=== PATIENT | male | born 1945 | race Caucasian/White ===

== ENCOUNTER 2018-08-23 10:11 | Outpatient (CLI) | payer MEDICARE ==
--- NOTE | 2018-08-23 13:16 | RAD ---
THREE VIEWS CERVICAL SPINE: HISTORY: Arthritis, neck pain. History of fall with pain for 1 year. FINDINGS: AP, lateral, and open-mouth odontoid views cervical spine obtained. Images demonstrate no evidence of acute cervical spine fracture, subluxations, or bony lesions. Ther e are some mild posterior osteophytes at C3-4 and C4-5. No significant evidence of acute or chronic cervical spine abnormality is seen. IMPRESSION: Unremarkable 3 views cervical spine. POS: TIAGO
== END 2018-08-23 10:12 | disposition home or self-care (01) ==
LOC: BICRAD 10:11
PROVIDERS: ATTEND Family Medicine
DX: M19.90 Unspecified osteoarthritis, unspecified site (principal)
CPT/HCPCS: 72040

== ENCOUNTER 2019-01-30 11:42 | Emergency (ER) | payer MEDICARE ==
--- NOTE | 2019-01-30 12:13 | RAD ---
FRight foot 3 views HISTORY: right foot injury COMPARISON: None FINDINGS: The toes are held in flexion slightly limiting the exam. There is diffuse osteopenia. No de finite acute fracture or subluxation is evident. Soft tissues appear within normal limits. IMPRESSION: No acute osseous abnormality.
--- NOTE | 2019-01-30 12:16 | RAD ---
LEFT FOOT 3 VIEWS: Date: 01/30/19 HISTORY: Foot injury 1 week ago. FINDINGS: Old first metatarsal fracture is seen. There is also deformity to the fifth metatarsal head, which ap pears to be related to old injury. No acute fractures are seen. Calcaneal spur at the plantar fascia insertion is noted. IMPRESSION: No acute findings. POS: ABBIE
== END 2019-01-30 13:09 | disposition home or self-care (01) ==
LOC: ERS 11:42
DX: M79.672 Pain in left foot (principal); M79.671 Pain in right foot; E78.00 Pure hypercholesterolemia, unspecified; I10 Essential (primary) hypertension; W01.0XXA Fall on same level from slipping, tripping and stumbling without subsequent striking against object, initial encounter

== ENCOUNTER 2019-05-28 18:43 | Inpatient (IN) | payer MEDICARE ==
[~2019-05-28 18:43] MED LIST: Dexamethasone 20 MG/5 ML VIAL ONE; Glycopyrrolate 0.2 MG/ML 5 ML SYRINGE ONE; ISOVUE-370 76%-LOCM 1 ML ONE; Lidocaine 1% PF 5 ML VIAL ONE; Ondansetron PF 4 MG/2 ML Vial ONE; PHENYLEPHRINE-NS 100 MCG/ML 10 ML SYRINGE ONE; PROPOFOL 200 MG/20 ML VIAL ONE; Rocuronium Bromide 10 MG/ML (10ML VIAL) ONE; Succinylcholine Chloride 20 MG/ML 10 ml SYRINGE FS ONE; ePHEDrine 50 MG/ML VIAL ONE
[2019-05-28] MEDS ORDERED: Morphine 4 MG/ML VIAL ONE (19:07)
[2019-05-28] MEDS ORDERED: Ondansetron PF 4 MG/2 ML Vial ONE (19:07)
[2019-05-28 19:21] LABS: Mean Corpuscular HGB CONC 33.7 g/dL (32.0-36.0); Mean Corpuscular Hemoglobin 30.9 pg (27.0-31.0); Mean Corpuscular Volume 91.5 fL (78.0-98.0); Mean Platelet Volume 8.6 fL (7.4-10.4); Platelet Count 210 thou/uL (130-400); Red Blood Cell (RBC) Count 5.18 mill/uL (4.70-6.10); White Blood Cell (WBC) Count 15.2 thou/uL (4.8-10.8)
[2019-05-28 19:41] LABS: ALT (SGPT) 12 U/L (8-55); AST (SGOT) 16 U/L (5-34); Albumin 4.4 g/dL (3.4-4.8); Alkaline Phosphatase 98 U/L (40-150); Anion Gap 19 mmol/L (10-20); BUN (Urea Nitrogen) 21 mg/dL (8.4-25.7); Band 36 % (5-11); Calc. Creatinine Clearance 0 mL/min (70-130); Calcium 9.5 mg/dL (7.8-10.44); Carbon Dioxide 23 mmol/L (23-31); Chloride 102 mmol/L (98-107); Estimated GFR-MDRD 42; Glucose 89 mg/dL (83-110); Lipase 20 U/L (8-78); Lymphocytes 7 % (21-51); MDiff Complete? YES; Metamyelocyte 4 % (0-0); Monocytes 3 % (0-10); Neutrophil 50 % (42-75); Platelet Morphology Comment Appears Adequate; Protein, Total 7.4 g/dL (5.8-8.1); RBC Morphology Normal; Sodium 140 mmol/L (136-145)
--- NOTE | 2019-05-28 20:12 | CT ---
CT abdomen and pelvis with IV contrast HISTORY: Abdominal pain. Fever. COMPARISON: Multiple exams back to 08/07/2016. FINDINGS: Mild atelectasis at the lung bases. Moderate hiatal hernia. Cyst at the superior pole of th e right kidney has enlarged. Diverticula arise from the colon. Within the anterior upper mid abdomen, multiple small bowel loops are inflamed. There is an irregular shaped collection of small gas pockets outside of the bowel lumen. Estimated at 4.9 cm x 3.2 cm greatest diameters. Scattered diverticula of the adjacent small bowel and colon are apparent. Strandi ng in the adjacent fat. Irregular shaped calcification at the right posterior margin of the abnormality may represent inspissated material in a diverticulum. Degenerative changes lumbar spine. IMPRESSION: Contained bowel perforation within the anterior upper mid abdomen, favored to be from the small bowel. Possibly ruptured small bowel diverticulitis. Adjacent inflammation of the fat and bowel. Atherosclerosis. Findings were called to Dr. Huizar in the emergency department at 2004 hours. Code CR.
[2019-05-28] MEDS ORDERED: Meropenem 2 GM, Admixture Fee 1 EACH in Sodium Chloride 0.9% 100 ML IVPB SCH (20:45)
[2019-05-28] MEDS ORDERED: Fentanyl 100 MCG/2 ML VIAL ONE ×2 (21:34→21:35)
[2019-05-28 21:36] LABS: INR-International Normal Ratio 1.2; PTT 30.8 SEC (22.9-36.1); Prothrombin Time 15.6 SEC (12.0-14.7)
[2019-05-29] MEDS ORDERED: SUGAMMADEX SODIUM 200 MG/2 ML VIAL ONE (01:00)
[2019-05-29] MEDS ORDERED: HYDROmorphone 0.5 MG/0.5 ML SYRINGE SLOW IVP SCH (01:15)
[2019-05-29] MEDS ORDERED: Dextrose 5% in Water 1,000 ML IV PRN (01:18)
[2019-05-29] MEDS ORDERED: Albumin 5% 0 ML ONE (01:18)
[2019-05-29] MEDS ORDERED: Naloxone HCl 0.4 mg/ml Vial IV PRN ×2 (01:18→01:24)
[2019-05-29] MEDS ORDERED: Dextrose 50% Abboject 50 ML SYRINGE SLOW IVP PRN (01:18)
[2019-05-29] MEDS ORDERED: diphenhydrAMINE 25 MG CAP PO PRN (01:18)
[2019-05-29] MEDS ORDERED: diphenhydrAMINE 50 MG/ML VIAL IM PRN (01:18)
[2019-05-29] MEDS ORDERED: diphenhydrAMINE 50 MG/ML VIAL IVP PRN (01:18)
[2019-05-29] MEDS ORDERED: Ondansetron PF 4 MG/2 ML Vial IVP PRN (01:18)
[2019-05-29 01:21] VITALS: BMI 28.0
[2019-05-29] MEDS ORDERED: HYDROmorphone 10 mg/100 ml CADD IVPB PRN ×2 (01:24→09:18)
[2019-05-29] MEDS ORDERED: Communication Order-Pharmacy FS SCH ×2 (01:30)
[2019-05-29] MEDS: Sodium Chloride 0.9% 1,000 ML IV SCH ×3 (01:46→22:14)
[2019-05-29] MEDS: Piperacillin/Tazobactam 3.375 GM in Sodium Chloride 0.9% 100 ML IVPB SCH ×3 (05:27→18:07)
[2019-05-29] MEDS: Acetaminophen 1,000 MG in Premix Bag 1 BAG IVPB SCH ×4 (05:27→23:27)
[2019-05-29 07:24] LABS: Hemoglobin 13.4 g/dL (14.0-18.0); Mean Corpuscular HGB CONC 33.1 g/dL (32.0-36.0); Mean Corpuscular Hemoglobin 30.5 pg (27.0-31.0); Mean Corpuscular Volume 92.2 fL (78.0-98.0); Mean Platelet Volume 8.1 fL (7.4-10.4); Platelet Count 154 thou/uL (130-400); Red Blood Cell (RBC) Count 4.39 mill/uL (4.70-6.10); White Blood Cell (WBC) Count 13.6 thou/uL (4.8-10.8)
[2019-05-29] MEDS: Ondansetron PF 4 MG/2 ML Vial IVP PRN ×2 (07:30→12:37)
[2019-05-29 07:37] LABS: Anion Gap 13 mmol/L (10-20); BUN (Urea Nitrogen) 17 mg/dL (8.4-25.7); Calc. Creatinine Clearance 70 mL/min (70-130); Calcium 7.9 mg/dL (7.8-10.44); Carbon Dioxide 22 mmol/L (23-31); Chloride 107 mmol/L (98-107); Estimated GFR-MDRD 62; Glucose 150 mg/dL (83-110); Magnesium 1.3 mg/dL (1.6-2.6); Phosphorus 2.9 mg/dL (2.3-4.7); Potassium 3.4 mmol/L (3.5-5.1); Sodium 139 mmol/L (136-145)
[2019-05-29] MEDS: Pantoprazole 40 MG VIAL IVP SCH ×2 (08:09→20:40)
[2019-05-29] MEDS: Enoxaparin Sodium 40 MG/0.4 ML SYRINGE SC SCH (08:09)
[2019-05-29] MEDS ORDERED: Magnesium 2 GM/50 ML 2 GM in Premix Bag 1 BAG IVPB SCH (09:00)
[2019-05-29 12:16] LABS: Band 4 % (5-11); MDiff Complete? YES; Monocytes 2 % (0-10); Neutrophil 89 % (42-75); Platelet Morphology Comment Appears Adequate; Reactive Lymphocytes 5 % (0-10)
[2019-05-29] MEDS: Promethazine HCl 25 MG/ML VIAL IM PRN ×2 (15:19→15:31)
--- NOTE | 2019-05-29 17:42 | PRG ---
DATE OF SERVICE: 05/29/2019 SUBJECTIVE: Me. Quinonez is a 73-year-old man, postoperative day #1, status post exploratory laparotomy, segmental small bowel resection with primary anastomosis for perforated small bowel diverticulitis. The patient is awake and alert today. He reports adequate pain control. His urinary output is adequate. He denies any dyspnea. He is on no vasopressor or inotropic support. OBJECTIVE: VITAL SIGNS: Includes blood pressure 102/62, pulse 79, respiratory rate is 15, temperature is 98 degrees Fahrenheit, and oxygen saturation is 95% on 3 L by nasal cannula oxygen. HEENT: Pupils are equal, round, and reactive to light and accommodation. He has no jugular venous distention noted. HEART: Reveals irregular rate and rhythm. LUNGS: Clear to auscultation bilaterally. Breathing, regular and unlabored. ABDOMEN: Soft with markedly improvement with regard to abdominal pain. Incisions are intact, clean, and dry. He clearly has no peritoneal signs on examination. NEUROLOGIC: Reveals no focal deficits present. LABORATORY FINDINGS: Today includes a CBC with 13,600 white blood cells, hemoglobin and hematocrit are 13.4 and 40.4 respectively. The platelet count is 154,000. Differential counts as follows 89% segmented neutrophils, 4 bands, 5 reactive lymphocytes, and 2 monocytes. This is in contrast to CBC yesterday with 15,200 white blood cells, albeit with 50 segmented neutrophils, 36 bands, 7 lymphocytes, and 3 monocytes. Laboratory findings today, sodium is 139, potassium is 3.4, chloride is 107, bicarb is 22, BUN is 17, and creatinine is 1.15, down from 1.61 yesterday. Glucose is 150, magnesium 1.3, and phosphorus is 2.9. IMPRESSION: 1. Postop day #1, status post exploratory laparotomy, segmental small bowel resection with primary anastomosis. 2. Resolving acute peritonitis. 3. Acute hypokalemia. 4. Acute hypomagnesemia. 5. Acute hypophosphatemia. PLAN: 1. Correct abnormal electrolytes. 2. Increase activity per Physical and Occupational Therapy. Cochran catheter will be discontinued. The patient is certainly hemodynamically stable for transfer to general surgical floor. Job ID: [id number]
[2019-05-29] MEDS: Tamsulosin HCl 0.4 MG CAP PO SCH (21:14)
[2019-05-30] MEDS: Piperacillin/Tazobactam 3.375 GM in Sodium Chloride 0.9% 100 ML IVPB SCH ×5 (00:07→23:09)
--- NOTE | 2019-05-30 03:34 | PRG ---
DATE OF SERVICE: 05/30/2019 SUBJECTIVE: The patient is currently on the surgical floor. He is postop day #1, status post exploratory laparotomy, segmental small bowel resection with primary anastomosis for perforated small bowel diverticulitis. The patient had his pain controlled with Dilaudid [employer]. The patient remaining n.p.o. at this time. There have no issues been reported by the nurses. OBJECTIVE: VITAL SIGNS: Stable. The patient is afebrile. GENERAL: The patient appears to be resting comfortably. ASSESSMENT AND PLAN: 1. Status post exploratory laparotomy, segmental small bowel resection with primary anastomosis. 2. Await bowel function return to begin oral intake. Repeat labs in the morning. Begin physical and occupational therapy and discussed placement. Job ID: [id number]
[2019-05-30] MEDS: Sodium Chloride 0.9% 1,000 ML IV SCH ×2 (05:28→17:12)
[2019-05-30 06:00] LABS: Band 1 % (5-11); Hemoglobin 12.7 g/dL (14.0-18.0); Hypochromia SLIGHT = 6-15 cells (100X) (0-5/hpf); Lymphocytes 5 % (21-51); MDiff Complete? YES; Mean Corpuscular HGB CONC 33.4 g/dL (32.0-36.0); Mean Corpuscular Hemoglobin 30.8 pg (27.0-31.0); Mean Corpuscular Volume 92.1 fL (78.0-98.0); Mean Platelet Volume 8.3 fL (7.4-10.4); Monocytes 4 % (0-10); Neutrophil 90 % (42-75); Platelet Count 152 thou/uL (130-400); Platelet Morphology Comment Appears Adequate; RBC Distribution Width 13.9 % (11.5-14.5); Red Blood Cell (RBC) Count 4.12 mill/uL (4.70-6.10); White Blood Cell (WBC) Count 10.5 thou/uL (4.8-10.8)
[2019-05-30 06:02] LABS: Anion Gap 10 mmol/L (10-20); BUN (Urea Nitrogen) 14 mg/dL (8.4-25.7); Calc. Creatinine Clearance 81 mL/min (70-130); Calcium 8.7 mg/dL (7.8-10.44); Carbon Dioxide 24 mmol/L (23-31); Chloride 110 mmol/L (98-107); Estimated GFR-MDRD 72; Glucose 107 mg/dL (83-110); Phosphorus 2.3 mg/dL (2.3-4.7); Potassium 3.4 mmol/L (3.5-5.1); Sodium 141 mmol/L (136-145)
--- NOTE | 2019-05-30 07:52 | HP ---
HISTORY: Mr. Quinonez is a 73-year-old man, who presented to emergency department with acute onset of generalized abdominal pain, which started approximately at 0800 hours. The pain was described as sharp and 4/10 in onset associated with multiple episodes of nausea, but no emesis. He denies any change in his bowel habits. He denies any unexplained weight loss. Pain has intensified to 10/10, for which he presented to the emergency department today. Ride to the hospital was rough in that each bump exacerbated his abdominal pain. PAST MEDICAL HISTORY: Pertinent for essential hypertension, hyperlipidemia, and diverticulosis coli. PAST SURGICAL HISTORY: Pertinent for pacemaker insertion, multiple endoscopies, repair of fractures to the right finger and foot. He has had excision of skin lesion on his nose. FAMILY HISTORY: Noncontributory for this patient's age. SOCIAL HISTORY: The patient is . Lives at home with his . He is retired from a [employer], a job he held for 37 years. He admits to occasional intake of ethanol in moderate amount. He denies any cigarette smoking or illicit drug abuse. MEDICATIONS: 1. Gemfibrozil 600 mg p.o. b.i.d. 2. Omeprazole 40 mg p.o. daily. 3. Bisoprolol/hydrochlorothiazide combination 10 mg/6.25 mg 1 p.o. daily. 4. Etodolac 500 mg p.o. b.i.d. 5. Aspirin 81 mg p.o. daily. ALLERGIES: HYDROCODONE, WHICH GIVES HIM NAUSEA, BUT NEVER ANAPHYLACTIC REACTION. REVIEW OF SYSTEMS: Ten-point review of systems is essentially unremarkable except as stated in past medical history and chief complaint. PHYSICAL EXAMINATION: GENERAL: This reveals a 73-year-old obese man, who is otherwise coherent, interactive, and appears stated age. The patient is alert and oriented x3. Appears to be in moderate acute distress secondary to severe abdominal pain. VITAL SIGNS: Reveal blood pressure 109/84, pulse 92, respiratory rate is 21, temperature 97.9 degrees Fahrenheit, oxygen saturation is 95% on 2 L by nasal cannula oxygen. HEENT: Reveals normocephalic and atraumatic. Pupils are equal, round, reactive to light and accommodation. He has no jugular venous distention noted. HEART: Reveals rate and rhythm. LUNGS: Clear to auscultation bilaterally. Breathing, regular and nonlabored. ABDOMEN: Soft and distended. He has generalized severe tenderness to palpation. He has a positive rebound tenderness present. Liver and spleen otherwise nonpalpable below costal margin. EXTREMITIES: Reveal 2+ radial and pedal pulses bilaterally. No ankle edema is present. NEUROLOGIC: Reveals no focal deficits present. LABORATORY FINDINGS: Today includes a CBC with 15,200 white blood cells, hemoglobin and hematocrit 16.0 and 47.4 respectively. Platelet count is 210,000. Of significance, his differential count of 50% segmented neutrophils, 36 bands, 7 lymphocytes, 3 monocytes, and 4 metamyelocytes. Metabolic profile; sodium 140, potassium 4.0, chloride is 102, bicarb is 23, BUN 21, creatinine is 1.61, glucose is 89. Lactic acid is elevated at 2.8. Total bilirubin is 1.0. AST and ALT normal at 16 and 12 respectively. Serum lipase is normal at 20. PTT and INR normal at 30.8 seconds and 1.2 respectively. I personally reviewed the CT scan of the abdomen and pelvis, which is remarkable for irregularly shaped collection of contained gas pocket site of small bowel lumen with neighboring small bowel with thickened wall and mesenteric fat stranding. Also noted diverticulosis coli without any evidence of colonic diverticulitis. IMPRESSION: 1. Acute perforated viscus, likely secondary to perforated small bowel diverticula. 2. Acute peritonitis secondary to #1. 3. Acute lactic acidosis. 4. Stage 3 chronic kidney disease. PLAN: Fluid resuscitation with appropriate broad-spectrum antibiotic therapy. The patient will be taken to the operating room for exploratory laparotomy and possible bowel resection and primary anastomosis. Above findings and recommendation have been discussed with the patient and his elderly at bedside. I have advised him of the risks and benefits of proposed surgery to include, but not limited to bleeding, infection, anastomotic leak, if small bowel resection was undertaken. Additionally, the patient is at risk for perioperative myocardial infarction or respiratory failure, requiring mechanical ventilator support. The patient and his have both indicated understanding of information I provided to them today in the presence of his nurse. I have answered all their questions. The patient is going to consent for this admission and surgical intervention. Job ID: [id number]
[2019-05-30] MEDS: Enoxaparin Sodium 40 MG/0.4 ML SYRINGE SC SCH (08:47)
[2019-05-30] MEDS: Pantoprazole 40 MG VIAL IVP SCH ×2 (08:47→19:33)
[2019-05-30] MEDS ORDERED: traMADol HCl 50 MG TAB PO PRN (10:04)
[2019-05-30] MEDS: traMADol HCl 50 MG TAB PO SCH ×3 (12:07→23:11)
[2019-05-30] MEDS: Acetaminophen 500 MG TAB PO SCH ×3 (12:07→23:11)
--- NOTE | 2019-05-30 12:29 | OP ---
DATE OF PROCEDURE: 05/28/2019 PREOPERATIVE DIAGNOSES: 1. Acute perforated viscus. 2. Acute peritonitis secondary to acute perforated viscus. 3. Acute lactic acidosis secondary to acute perforated viscus and acute peritonitis. POSTOPERATIVE DIAGNOSIS: Acute perforated jejunal diverticula with acute peritonitis. PROCEDURES PERFORMED: 1. Exploratory laparotomy. 2. Segmental small bowel resection with primary anastomosis. 3. Abdominal washout. ANESTHESIA: General endotracheal. ESTIMATED BLOOD LOSS: 50 mL. FLUIDS GIVEN: 1500 mL crystalloids. COUNTS: Sponge and instrument counts were verified as correct x2. COMPLICATIONS: None apparent at the time of operation. INDICATIONS FOR PROCEDURE: A 73-year-old man presented with sudden onset of severe abdominal pain. Clinical and radiographic examination was consistent with acute perforated viscus with peritonitis, lactic acidosis, and leukocytosis with marked left shift. The patient was brought to the operating room for abdominal exploration. The findings are consistent with multiple jejunal diverticula with perforation and succus entericus within the abdominal cavity. DESCRIPTION OF PROCEDURE: Informed consent was obtained from the patient who was brought to the operating room and placed in supine position. Following general anesthesia, a Cochran catheter was inserted and placed to bedside drain. Nasogastric tube was inserted and placed to wall suction. Abdomen was sterilely prepped and draped in usual fashion. Midline incision was made using 10 scalpel. Incision was carried through subcutaneous tissues maintaining hemostasis using cautery. The fascia incised in midline using cautery. The peritoneum was exposed, grasped x2 with hemostats. Peritoneal cavity was sharply entered using Metzenbaum scissors. The incision was then extended superiorly and inferiorly. A Bookwalter retractor was put in place to gain exposure. A moderate amount of succus entericus was evacuated from the peritoneal cavity. Small bowel was run from the ligament of Treitz down to terminal ileum. I encountered multiple large jejunal diverticula. There were local perforation and some of the diverticula with succus entericus secretion and moderate amount of fibrinous exudates were also evacuated. Large intestine was inspected from the cecum through the ascending, transverse, descending, sigmoid colon and rectum. Aside from sigmoid colonic diverticula with no evidence of perforation or diverticulitis, no other pathology is identified. The previous nasogastric tube was palpated within the gastric lumen. Liver is palpated free of any abnormality. Normal appendix and gallbladder noted in the usual anatomic location. Spleen is palpated in the left upper quadrant. No abnormalities present. At this juncture, we decided to proceed with segmental small bowel resection. I created a rent just proximal to the beginning of the jejunal diverticula. A rent was created in the small bowel mesentery here through which a ROCIO stapler was introduced. Bowel was divided. I then created another rent just distal to the last jejunal diverticula. Again introduced a ROCIO stapler through this rent, dividing the bowel. Mesentery of the jejunal specimen was sterilely divided using LigaSure device with good hemostasis. The specimen was passed off the operative field for formal transmission to pathology. The abdominal cavity was copiously irrigated with saline solution until it was clear. To reapproximate the small bowel, the staple ends of the bowel were approximated in a [id number] fashion, antimesenteric border using interrupted sutures of 3-0 silk. Enterotomies were made at both apices, through which free ends of ROCIO stapler was introduced and functional end-to-end but anatomic [id number] enteroenterostomy was perfected. Common enterotomies were closed using re-loaded ROCIO stapler. Resultant mesenteric defect is closed using a running stitch of 2-0 Vicryl. The abdominal cavity was again irrigated. Good hemostasis was noted in place. All sponges and instruments were reported as correct x2. Small bowel returned to normal anatomic location. Omentum was drawn over remainder of the viscera. Fascia was approximated in the midline using a running stitch of #1 single-stranded PDS. Subcutaneous tissues were irrigated clear with saline solution, perfected hemostasis using cautery. Deep tissues approximated using interrupted sutures of 2-0 Vicryl. Skin incision itself was closed using a running stitch of 3-0 Monocryl suture in subcuticular fashion. Dermabond was applied over incisional closure. The patient tolerated the operation without any apparent complication and was returned to the intensive care unit in stable condition. Job ID: [id number]
--- NOTE | 2019-05-30 15:29 | PRG ---
DATE OF SERVICE: 05/30/2019 SUBJECTIVE: This is a 73-year-old gentleman postop day 2, status post exploratory laparotomy, segmental small bowel resection with primary anastomosis for perforated small bowel diverticulitis. The patient is doing better. Pain is well controlled. Urinary output is adequate. He denied any fever or shortness of breath. He is on no vasopressor support. OBJECTIVE: GENERAL: The patient is alert, awake, and oriented x3. VITAL SIGNS: Temperature 98.6, heart rate 78, respiratory rate 16, and O2 saturation 94% on 1 L of nasal cannula. LUNGS: Clear bilaterally. Breathing nonlabored. HEART: Regular rate and rhythm. ABDOMEN: Soft, nontender to touch. Incision, intact, clean, and dry. No rebound. NEUROLOGIC: No focal deficits. IMPRESSION: Postop day 2 status post exploratory laparotomy, segmental small bowel resection with primary anastomosis, and acute peritonitis, resolving. PLAN: NG tube was discontinued today. The patient will be participating with PT/OT on aggressive activity. Continue gastrointestinal and DVT prophylaxis. The patient is on clear liquid diet, waiting for bowel function to return. Job ID: [id number] [facility]
--- NOTE | 2019-05-30 15:41 | PQF ---
CLINICAL DOCUMENTATION IMPROVEMENT CLARIFICATION FORM: ICD-10 Updated PLEASE DO AN ADDENDUM TO THE PROGRESS NOTE WITH ANY DOCUMENTATION UPDATES OR ADDITIONS AND CARRY THROUGH TO DC SUMMARY. THANK YOU. DATE: 05/30/19 ATTN: DR. CRUZ Please exercise your independent, professional judgment in responding to the clarification form. Clinical indicators are provided on the bottom of this form for your review Please check appropriate box(es): [ ] Sepsis due to: (Pna, UTI, gangrenous gall bladder, etc.) Due to: [ ] Device (please specify) [ ] Implant [ ] Graft [ ] Infusion [ ] SIRS due to non-infectious process (please specify etiology) [ ] with organ dysfunction [ ] without organ dysfunction [ ] Severe sepsis with acute organ dysfunction of: (Examples: respiratory failure, encephalopathy, acute kidney failure, other) [ ] Septic Shock [ ] Localized infection without sepsis [ ] Other diagnosis [ ] Unable to determine In addition, please specify: Present on Admission (POA): [ ] Yes [ ] No [ ] Unable to determine For continuity of documentation, please document condition throughout progress notes and discharge summary. Thank You. CLINICAL INDICATORS - SIGNS / SYMPTOMS / LABS WBC 15.2 BANDS 36 LACTIC ACID 2.8 BP 90/59 RISKS: PERFORATED VISCUS PERITONITIS TREATMENT: IV FLUIDS (ER-PRESENT) IV MEROPENEM (ER) IV CIPRO (ER) IV ZOSYN (05/29-PRESENT) EXPLORATORY LAP SERIAL [employer]S [employer] Coordinator [employer] Program [employer] Winform Viewer(This form is maintained as a part of the permanent medical record) 2014 [employer]. All Rights Reserved [email or web address] Office: [phone] [facility]ITALNicole
[2019-05-30] MEDS ORDERED: DC PCA Order Set 1 EACH FS ONE (17:00)
[2019-05-30] MEDS ORDERED: Potassium Phosphate 15 MMOL in Sodium Chloride 0.9% 250 ML 250 ML IVPB SCH (17:15)
[2019-05-30] MEDS: Tamsulosin HCl 0.4 MG CAP PO SCH (19:32)
--- NOTE | 2019-05-31 01:03 | PRG ---
DATE OF SERVICE: 05/31/2019 SUBJECTIVE: The patient is postop day #2, status post exploratory laparotomy, segmental small bowel resection with primary anastomosis for perforated small bowel diverticulitis. The patient is doing well. He is tolerating his clear liquid diet. His pain is controlled and he has adequate urinary output. OBJECTIVE: VITAL SIGNS: Stable. The patient is afebrile. GENERAL: The patient appears comfortable, in no distress. ABDOMEN: There is minimal tenderness to palpation of his abdomen and he does have active bowel sounds. ASSESSMENT: Status post exploratory laparotomy with segmental small bowel resection and primary anastomosis for perforated small bowel diverticulitis. PLAN: Plan will be to continue encourage ambulation. We will continue his pain medication and advance his diet as tolerated. Placement will also be discussed tomorrow by the Day Team. Job ID: [id number]
[2019-05-31 05:26] LABS: Anion Gap 11 mmol/L (10-20); BUN (Urea Nitrogen) 10 mg/dL (8.4-25.7); Calc. Creatinine Clearance 83 mL/min (70-130); Calcium 8.6 mg/dL (7.8-10.44); Carbon Dioxide 26 mmol/L (23-31); Chloride 108 mmol/L (98-107); Estimated GFR-MDRD 73; Glucose 94 mg/dL (83-110); Magnesium 1.8 mg/dL (1.6-2.6); Phosphorus 2.4 mg/dL (2.3-4.7); Potassium 3.7 mmol/L (3.5-5.1); Sodium 141 mmol/L (136-145)
[2019-05-31] MEDS: Piperacillin/Tazobactam 3.375 GM in Sodium Chloride 0.9% 100 ML IVPB SCH ×2 (05:27→11:44)
[2019-05-31] MEDS: Acetaminophen 500 MG TAB PO SCH ×3 (05:27→18:26)
[2019-05-31] MEDS: traMADol HCl 50 MG TAB PO SCH ×3 (05:28→18:25)
[2019-05-31] MEDS: Sodium Chloride 0.9% 1,000 ML IV SCH ×2 (05:28→13:19)
[2019-05-31] MEDS: Enoxaparin Sodium 40 MG/0.4 ML SYRINGE SC SCH (08:41)
[2019-05-31] MEDS: Pantoprazole 40 MG VIAL IVP SCH (08:41)
--- NOTE | 2019-05-31 12:18 | PRG ---
DATE OF SERVICE: 05/31/2019 SUBJECTIVE: This is a 73-year-old gentleman, postop day #3, status post exploratory laparotomy, segmental small-bowel resection with primary anastomosis for perforated small bowel diverticulitis. The patient is doing well. The nurse states that he is able to get up on his own at this time. He is on a clear liquid diet. OBJECTIVE: VITAL SIGNS: Temperature 98.1, pulse 100, respirations 16, O2 saturation 92% on room air, and blood pressure 133/73. GENERAL: The patient is awake, alert, oriented x3. LUNGS: Clear to auscultation bilaterally. Labored breathing. HEART: Regular rate and rhythm. ABDOMEN: Soft and nontender to touch. No rebound. NEUROLOGIC: No focal deficits. IMPRESSION: Postop day #3, status post exploratory laparotomy, segmental small-bowel resection with primary anastomoses, and acute peritonitis secondary to perforated small bowel diverticulitis, resolving. PLAN: Doing well without NG tube at this time. Continue to participate with PT , OT as he is making good strides. He is able to get up by himself at this point. Currently on a clear liquid diet, consider advancing at this time. Findings and plan to have been discussed with the patient and Dr. Duran at bedside. He understands the plan. Job ID: [id number] [facility]
[2019-05-31] MEDS ORDERED: Etodolac 200 MG CAP PO PRN (16:08)
[2019-05-31] MEDS ORDERED: Digoxin 0.5 MG/2 ML AMP ONE (16:08)
[2019-05-31] MEDS: Gemfibrozil 600 MG TAB PO SCH (16:30)
[2019-05-31] MEDS ORDERED: Bisoprolol Fumarate/HCTZ 10 mg/6.25 mg Tablet PO SCH (16:30)
[2019-05-31] MEDS ORDERED: Digoxin 0.5 MG/2 ML AMP SLOW IVP SCH ×2 (17:00→17:21)
[2019-05-31 18:21] LABS: #Eosinphils 0.1 thou/uL (0.0-0.7); #Lymphocytes 0.9 thou/uL (1.20-3.40); #Monocytes 0.4 thou/uL (0.11-0.59); #Neutrophils 5.6 thou/uL (1.40-6.50); %Basophils 0.2 % (0.0-1.0); %Eosinophils 1.4 % (0.0-10.0); %Lymphocytes 12.5 % (21.0-51.0); %Monocytes 5.8 % (0.0-10.0); %Neutrophils 80.1 % (42.0-75.0); Hemoglobin 11.9 g/dL (14.0-18.0); Mean Corpuscular HGB CONC 33.4 g/dL (32.0-36.0); Mean Corpuscular Hemoglobin 30.5 pg (27.0-31.0); Mean Corpuscular Volume 91.3 fL (78.0-98.0); Mean Platelet Volume 7.8 fL (7.4-10.4); Platelet Count 148 thou/uL (130-400); RBC Distribution Width 13.5 % (11.5-14.5); Red Blood Cell (RBC) Count 3.89 mill/uL (4.70-6.10)
[2019-05-31 18:51] LABS: Anion Gap 12 mmol/L (10-20); BUN (Urea Nitrogen) 8 mg/dL (8.4-25.7); Calc. Creatinine Clearance 96 mL/min (70-130); Calcium 8.7 mg/dL (7.8-10.44); Carbon Dioxide 24 mmol/L (23-31); Chloride 107 mmol/L (98-107); Estimated GFR-MDRD 87; Glucose 102 mg/dL (83-110); Magnesium 1.7 mg/dL (1.6-2.6); Phosphorus 2.1 mg/dL (2.3-4.7); Sodium 140 mmol/L (136-145)
[2019-05-31] MEDS ORDERED: Potassium Phosphate 30 MMOL in Sodium Chloride 0.9% 250 ML 250 ML IVPB SCH (19:30)
[2019-05-31] MEDS: Amoxicillin/Potassium Clav 875 MG TAB PO SCH (21:01)
[2019-05-31] MEDS: Tamsulosin HCl 0.4 MG CAP PO SCH (21:01)
--- NOTE | 2019-05-31 23:30 | PRG ---
DATE OF SERVICE: 05/31/2019 SUBJECTIVE: Status post exploratory laparotomy and segmental small bowel resection with primary anastomosis for perforated small bowel diverticulitis. The patient continues to tolerate a full liquid diet. The patient currently remains atrial paced on the telemonitor with no runs of SVT. The patient denies any abdominal pain. OBJECTIVE: VITAL SIGNS: Stable. The patient is afebrile. GENERAL: No acute distress, resting in hospital bed. IMPRESSION: Status post exploratory laparotomy with segmental small bowel resection and primary anastomosis for perforated small bowel diverticulitis. PLAN: Continue supportive care. Encourage ambulation when awake. Job ID: [id number]
[2019-06-01] MEDS: Acetaminophen 500 MG TAB PO SCH ×3 (00:55→11:33)
[2019-06-01] MEDS: traMADol HCl 50 MG TAB PO SCH ×3 (00:55→11:33)
[2019-06-01 05:26] LABS: #Eosinphils 0.2 thou/uL (0.0-0.7); #Lymphocytes 1.1 thou/uL (1.20-3.40); #Monocytes 0.4 thou/uL (0.11-0.59); #Neutrophils 4.9 thou/uL (1.40-6.50); %Basophils 0.2 % (0.0-1.0); %Eosinophils 3.1 % (0.0-10.0); %Lymphocytes 16.6 % (21.0-51.0); %Monocytes 5.3 % (0.0-10.0); %Neutrophils 74.9 % (42.0-75.0); Hemoglobin 11.6 g/dL (14.0-18.0); Mean Corpuscular HGB CONC 32.4 g/dL (32.0-36.0); Mean Corpuscular Volume 92.5 fL (78.0-98.0); Mean Platelet Volume 8.8 fL (7.4-10.4); Platelet Count 159 thou/uL (130-400); RBC Distribution Width 13.7 % (11.5-14.5); Red Blood Cell (RBC) Count 3.86 mill/uL (4.70-6.10); White Blood Cell (WBC) Count 6.6 thou/uL (4.8-10.8)
[2019-06-01 05:46] LABS: Anion Gap 15 mmol/L (10-20); BUN (Urea Nitrogen) 9 mg/dL (8.4-25.7); Calc. Creatinine Clearance 96 mL/min (70-130); Carbon Dioxide 22 mmol/L (23-31); Chloride 105 mmol/L (98-107); Estimated GFR-MDRD 87; Glucose 89 mg/dL (83-110); Magnesium 2.2 mg/dL (1.6-2.6); Phosphorus 4.2 mg/dL (2.3-4.7); Sodium 138 mmol/L (136-145)
[2019-06-01] MEDS ORDERED: Bisoprolol Fumarate/HCTZ 10 mg/6.25 mg Tablet PO SCH (09:00)
[2019-06-01] MEDS ORDERED: Aspirin 81 mg Enteric Coated Tablet PO SCH (09:00)
[2019-06-01] MEDS: Amoxicillin/Potassium Clav 875 MG TAB PO SCH (09:03)
[2019-06-01] MEDS: Enoxaparin Sodium 40 MG/0.4 ML SYRINGE SC SCH (09:03)
[2019-06-01] MEDS: Gemfibrozil 600 MG TAB PO SCH (09:03)
[2019-06-01 12:00] VITALS: BP 144/76; TEMP 98.2
--- NOTE | 2019-06-01 13:23 | EKG ---
Test Reason : Blood Pressure : / mmHG Vent. Rate : 163 BPM Atrial Rate : 227 BPM P-R Int : 000 ms QRS Dur : 086 ms QT Int : 272 ms P-R-T Axes : 000 019 -41 degrees QTc Int : 447 ms Supraventricular tachycardia Nonspecific ST and T wave abnormality Abnormal ECG When compared with ECG of 28-MAY-2019 21:43, (Unconfirmed) SVT has replaced Electronic atrial pacemaker Vent. rate has increased BY 83 BPM Non-specific change in ST segment in Lateral leads Confirmed by JURGEN CHAIREZ (2) on 06/01/2019 1:23:22 PM Referred By: ASHLEY Confirmed By:JURGEN CHAIREZ
--- NOTE | 2019-06-01 15:41 | EKG ---
Test Reason : Blood Pressure : / mmHG Vent. Rate : 080 BPM Atrial Rate : 080 BPM P-R Int : 224 ms QRS Dur : 086 ms QT Int : 384 ms P-R-T Axes : 000 009 -04 degrees QTc Int : 442 ms Electronic atrial pacemaker Low voltage QRS Borderline ECG Confirmed by SONI JENNINGS, CITLALI Cordova ([id number]), features editor PUNEET FINNEGAN ([id number]) on 06/01/2019 3:40:50 PM Referred By: Confirmed By:CITLALI SHAFER MD
--- NOTE | 2019-06-01 16:26 | DIS ---
DATE OF ADMISSION: 05/29/2019 DATE OF DISCHARGE: 06/01/2019 RESIDENT: Jef Aguila DO CONSULTS: None. PROCEDURES: 1. CT abdomen and pelvis revealed bowel perforation within the anterior upper mid abdomen, favored to be from the small bowel, possibly ruptured small bowel reticulitis. 2. Exploratory laparotomy performed. 3. Segmental small bowel resection with primary anastomosis. 4. Abdominal washout. PRIMARY DIAGNOSES: 1. Acute perforated viscus, likely secondary to perforated small bowel diverticula. 2. Acute peritonitis. 3. Acute lactic acidosis. 4. Chronic kidney disease, stage 3. SECONDARY DIAGNOSES: 1. Hypertension. 2. Hyperlipidemia. 3. History of diverticulosis coli. DISCHARGE MEDICATIONS: 1. Gemfibrozil 600 b.i.d. 2. Etodolac 500 mg b.i.d. 3. Aspirin 81 p.o. daily. 4. Omeprazole 40 mg p.o. daily. 5. Bisoprolol/hydrochlorothiazide 10/6.25 one tablet p.o. daily. 6. Augmentin 875 p.o. q.12 hours, discontinued on 06/03/2019. 7. Flomax 0.4 p.o. at night. 8. Acetaminophen 1000 mg p.o. p.r.n. pain. HISTORY OF PRESENT ILLNESS/HOSPITAL COURSE: Mr. Quinonez is a 73-year-old man, presented to the ED with acute onset of generalized abdominal pain. The pain was described as sharp, 4/10 on onset, associated with multiple episodes of nausea, but no emesis. CT revealed perforation, likely diverticula in the small bowel. He was taken back for exploratory laparotomy, which revealed segmental small bowel, jejunal diverticula that were perforated. Segmental small bowel was resected with primary anastomoses and abdominal washout was performed. The patient tolerated the procedure very well. PT/OT was initiated immediately. He did have an NG tube placed after surgery, which was discontinued on postop day #2. He did not have any complications after discontinuing the NG tube and tolerated advancement of his diet well. On 06/01/2019, his diet was advanced fully. Overall, he tolerated the hospital stay very well and had no complications after surgery. DISPOSITION: Stable. DISCHARGE INSTRUCTIONS: 1. Location: Home. 2. Diet: Regular diet. 3. Activity: Do not lift more than 20 pounds at this time. 4. Followup: Dr. Duran within 1 week; Braeden Villalobos MD, PCP, in 10 to 14 days. Pt seen with and plan discussed with Dr. Duran at pt's beside. Job ID: [id number] [facility]
== END 2019-06-01 15:51 | disposition home or self-care (01) | DRG 329 ==
LOC: ERS 18:43 → SDC/OP 22:20 → CCU 05-29 01:02 → SURG A 05-29 15:31 → 2NO 05-31 17:26
PROVIDERS: ADMIT Surgery; ATTEND Surgery
PROC: 0DBA0ZZ Excision of Jejunum, Open Approach (ICD-10-PCS; principal; 2019-05-29)
DX: K57.00 Diverticulitis of small intestine with perforation and abscess without bleeding (principal); K65.0 Generalized (acute) peritonitis; E87.2 Acidosis; E78.5 Hyperlipidemia, unspecified; N18.3 Chronic kidney disease, stage 3 (moderate); I12.9 Hypertensive chronic kidney disease with stage 1 through stage 4 chronic kidney disease, or unspecified chronic kidney disease; Z95.0 Presence of cardiac pacemaker; Z79.899 Other long term (current) drug therapy; Z79.82 Long term (current) use of aspirin; Z88.5 Allergy status to narcotic agent
CPT/HCPCS: 36415; 74177; 80048; 80053; 83605; 83690; 83735; 84100; 84145; 85007; 85025; 85027; 85610; 85730; 86850; 86900; 86901; 88307; 93005; 93010; 94640; 96361; 96365; 96375; C9113; J0131; J0744; J1100; J1160; J1170; J1650; J2001; J2185; J2270; J2405; J2543; J2550; J2704; J3010; J3475; J3490; J7050; J7620; P9045; Q9966

== ENCOUNTER 2020-08-09 10:35 | Inpatient (IN) | payer MEDICARE, OTHER ==
[2020-08-09 12:06] LABS: #Eosinphils 0.1 thou/uL (0.0-0.7); #Lymphocytes 1.6 thou/uL (1.20-3.40); #Monocytes 0.4 thou/uL (0.11-0.59); #Neutrophils 7.1 thou/uL (1.40-6.50); %Basophils 0.2 % (0.0-1.0); %Lymphocytes 17.3 % (21.0-51.0); %Monocytes 4.4 % (0.0-10.0); %Neutrophils 77.1 % (42.0-75.0); Hemoglobin 14.4 g/dL (14.0-18.0); Mean Corpuscular HGB CONC 33.9 g/dL (32.0-36.0); Mean Corpuscular Hemoglobin 29.9 pg (27.0-31.0); Mean Corpuscular Volume 88.2 fL (78.0-98.0); Platelet Count 650 thou/uL (130-400); RBC Distribution Width 13.7 % (11.5-14.5); Red Blood Cell (RBC) Count 4.81 mill/uL (4.70-6.10); White Blood Cell (WBC) Count 9.2 thou/uL (4.8-10.8)
[2020-08-09 12:09] LABS: Bilirubin Negative (Negative); Blood, Urine Negative (Negative); Clarity Clear (Clear); Glucose, Urine (Dipstick) Normal (Negative); Ketone, Urine Negative (Negative); Leukocyte Negative Leu/uL (Negative); Nitrite Negative (Negative); Protein, Urine (Dipstick) 10 mg/dL (Neg-Trace); Specific Gravity, Urine 1.014 (1.002-1.036); Urobilinogen Normal mg/dL (Less than 2)
[2020-08-09 12:35] LABS: ALT (SGPT) 15 U/L (8-55); AST (SGOT) 17 U/L (5-34); Albumin 4.2 g/dL (3.4-4.8); Alkaline Phosphatase 103 U/L (40-110); Anion Gap 17 mmol/L (10-20); BUN (Urea Nitrogen) 52 mg/dL (8.4-25.7); Bilirubin, Total 0.3 mg/dL (0.2-1.2); Calc. Creatinine Clearance 0 mL/min (70-130); Calcium 9.5 mg/dL (7.8-10.44); Carbon Dioxide 21 mmol/L (23-31); Chloride 94 mmol/L (98-107); Estimated GFR-MDRD 13; Globulin 3.5 g/dL (2.4-3.5); Glucose 102 mg/dL (83-110); Potassium 4.2 mmol/L (3.5-5.1); Protein, Total 7.7 g/dL (5.8-8.1); Sodium 128 mmol/L (136-145)
--- NOTE | 2020-08-09 14:55 | PDOC.HHP ---
Hospitalist HPI - History of Present Illness Abnormal labs, sent by PCP History of Present Illness: PCP: Braeden Villalobos The patient is a 74-year-old male with a past medical history significant for arrhythmia (on beta-drew), hypertension, hyperlipidemia and diverticulitis that presents to the emergency department for the above complaint. Patient was recently discharged from our hospital on 08/03 for duodenal ulcer and sepsis. Patient was discharged home on oral Bactrim and Flagyl and puree diet. He reports that he completed the prescriptions as prescribed. He had follow-up with his PCP, Dr. Ross who had repeat labs. Apparently his creatinine was 3.7. The creatinine was repeated and was found to be 4.0. The patient was sent to the hospital for further evaluation. Patient takes hydrochlorothiazide at home. The patient denies any use of NSAIDs. He has just completed a regimen of oral Bactrim. He denies any abdominal pain, nausea, vomiting, diarrhea. He has no urinary symptoms. Denies any fever or chills no known sick contacts. He has no other complaints at this time. . ED Course: VITAL SIGNS [place] Aug 09, 2020 10:35 RENEA Menendez Kelsey BP: 102/43, MAP: 75, Pulse: 49, Resp: 20 (Non-Labored), Pain: 0, O2 sat: 96 on (Room Air), Time: 08/09/2020 10:35. VITAL SIGNS Alice Aug 09, 2020 11:23 RENEA Brink Brandi BP: 92/56, MAP: 68, Pulse: 72, Resp: 18, Temp: 98.1 (Oral), Pain: 0, O2 sat: 98 on (Room Air), Time: 08/09/2020 11:23. VITAL SIGNS [facility] Aug 09, 2020 13:01 RENEA Brink Brandi BP: 111/66, MAP: 81, Pulse: 85, Resp: 19 (Non-Labored), Pain: 0, O2 sat: 99 on (Room Air), Time: 08/09/2020 13:01. Medication administration: Normal Saline 1 L IV Fluid Infusion Given 13:36 08/09/2020 Normal Saline 1 L IV Fluid Infusion Given 12:05 08/09/2020 Hospitalist ROS - Review of Systems Constitutional: denies: fever, chills Respiratory: denies: cough, shortness of breath, hemoptysis Cardiovascular: denies: chest pain, palpitations, edema All other systems reviewed; all pertinent +/- noted in HPI/Subj - Medication Medications: gemfibrozil TABLET : Strength - 600 mg : ORAL Patient Dose: 600 mg Oral 2 times a day (before meals). omeprazole CAPSULE,DELAYED RELEASE (ENTERIC COATED) : Strength - 40 mg : ORAL Patient Dose: 40 mg once a day. bisoprolol-hydrochlorothiazide TABLET : Strength - 10 mg-6.25 mg : ORAL Patient Dose: 1 Oral once a day (in the morning). aspirin oral TABLET : Strength - 81 mg : ORAL Patient Dose: Oral once a day (in the morning). Allergies: Vicodin Hospitalist History - Past Medical History Source: patient, family, RN notes reviewed Cardiac: reports: HTN, Hyperlipidemia, Other (Arrhythmia, unknown name) Gastrointestinal: reports: GERD - Past Surgical History Past Surgical History: reports: Other (Pacemaker, right foot surgery, polyp removal, vasectomy) - Family History Other Family History: Noncontributory to this case - Social History Smoking Status: Never smoker Alcohol: reports: None Drugs: reports: none Living Situation: With Family Activity level: independent ambulation - Exam General Appearance: NAD, awake alert Eye: anicteric sclera ENT: normocephalic atraumatic Neck: supple, symmetric, no JVD Heart: RRR, no murmur, no gallops, no rubs, normal peripheral pulses Respiratory: CTAB, no wheezes, no rales, no ronchi, normal chest expansion, no tachypnea Gastrointestinal: soft, non-tender, non-distended, normal bowel sounds, no bruit, no guarding, no rigidity Extremities: no cyanosis, no edema Skin: no rashes Neurological: cranial nerve grossly intact, no weakness Musculoskeletal: normal tone, normal strength Psychiatric: normal affect, A&O x 3 Hospitalist Results - Labs Result Diagrams: 08/09/20 11:42 08/09/20 11:42 Lab results: WBC 9.2 thou/uL (4.8-10.8) 08/09/20 11:42 Hgb 14.4 g/dL (14.0-18.0) 08/09/20 11:42 Hct 42.4 % (42.0-52.0) 08/09/20 11:42 MCV 88.2 fL (78.0-98.0) 08/09/20 11:42 Plt Count 650 thou/uL (130-400) H 08/09/20 11:42 Neutrophils % 77.1 % (42.0-75.0) H 08/09/20 11:42 Sodium 128 mmol/L (136-145) L 08/09/20 11:42 Potassium 4.2 mmol/L (3.5-5.1) 08/09/20 11:42 Chloride 94 mmol/L (98-107) L 08/09/20 11:42 Carbon Dioxide 21 mmol/L (23-31) L 08/09/20 11:42 BUN 52 mg/dL (8.4-25.7) H 08/09/20 11:42 Creatinine 4.32 mg/dL (0.7-1.3) H 08/09/20 11:42 Glucose 102 mg/dL (83-110) 08/09/20 11:42 Calcium 9.5 mg/dL (7.8-10.44) 08/09/20 11:42 Total Bilirubin 0.3 mg/dL (0.2-1.2) 08/09/20 11:42 AST 17 U/L (5-34) 08/09/20 11:42 ALT 15 U/L (8-55) 08/09/20 11:42 Alkaline Phosphatase 103 U/L (40-110) 08/09/20 11:42 Serum Total Protein 7.7 g/dL (5.8-8.1) 08/09/20 11:42 Albumin 4.2 g/dL (3.4-4.8) 08/09/20 11:42 Urine Ketones Negative mg/dL (Negative) 08/09/20 11:52 Urine Blood Negative (Negative) 08/09/20 11:52 Urine Nitrite Negative (Negative) 08/09/20 11:52 Ur Leukocyte Esterase Negative Edwin/uL (Negative) 08/09/20 11:52 - EKG Interpretation EK lead EKG interpreted by Emergency Department Physician at time of study, Rate of 87. Atrially paced rhythm with first-degree AV block. Prolonged AV conduction. Normal axis. Normal QRS width. Normal R wave progression. Normal T waves. Normal ST segments. Hospitalist H&P A/P - Problem (1) BLOSSOM (acute kidney injury) Code(s): N17.9 - ACUTE KIDNEY FAILURE, UNSPECIFIED Status: Acute (2) Hyponatremia Code(s): E87.1 - HYPO-OSMOLALITY AND HYPONATREMIA Status: Acute (3) Dehydration Code(s): E86.0 - DEHYDRATION Status: Acute (4) Hypertension Code(s): I10 - ESSENTIAL (PRIMARY) HYPERTENSION Status: Chronic (5) GERD (gastroesophageal reflux disease) Code(s): K21.9 - GASTRO-ESOPHAGEAL REFLUX DISEASE WITHOUT ESOPHAGITIS Status: Chronic (6) Hyperlipidemia Code(s): E78.5 - HYPERLIPIDEMIA, UNSPECIFIED Status: Chronic (7) Arrhythmia Code(s): I49.9 - CARDIAC ARRHYTHMIA, UNSPECIFIED Status: Chronic - Plan Plan: 74/M with recent discharge from the hospital for duodenal ulcer and sepsis, disc harged on Bactrim presents for BLOSSOM and low sodium. Admit to medical floor, inpatient status. Expected length of stay greater than 2 midnights. Presented hypotensive, bradycardic, NL RR, SPO2, afebrile. EKG a paced, first-degree AV block, 87 bpm. BUN 52, creatinine 4.32 NA 128. Received 2 L normal saline in ED. #BLOSSOM Baseline creatinine was 1.0 Likely multifactorial, pre-renal and infrarenal Hold HCTZ. Continue IV fluids at 150 mL/hour. Add Bicitra 3 times daily. Consult nephrology. Order renal ultrasound. Avoid nephrotoxic medications. Recheck BMP in a.m. #Hyponatremia Mild, presented NA 128. Likely due to problem #1 Check serum osmolality, urine osmolality, urine sodium. Continue IV fluid resuscitation. Recheck level in the a.m. #Dehydration Continue IV fluids. #Hypertension Chronic. Patient presented mildly hypotensive. We will hold home bisoprolol and HCTZ for now. Continue to monitor BP. We will restart home medications when appropriate. #GERD Start home dose of omeprazole. #Hyperlipidemia Restart home dose of gemfibrozil. #History of arrhythmia Unknown arrhythmia, has pacemaker. Takes his Bisoprolol at home. EKG showed a paced first-degree AV block rhythm. We will restart home beta-drew when blood pressure more stable. Heparin for DVT prophylaxis. Omeprazole for GI prophylaxis. Full code. Noman DAVIDSON is his spouse, Stephany at [phone]. Discussed case with Dr. Saunders.
[2020-08-09] MEDS ORDERED: Acetaminophen 325 MG TAB PO PRN (15:00)
[2020-08-09] MEDS ORDERED: Ondansetron ODT 4 MG TAB PO PRN (15:00)
[2020-08-09] MEDS ORDERED: Ondansetron PF 4 MG/2 ML Vial IVP PRN (15:00)
[2020-08-09 17:06] VITALS: BMI 25.6
[2020-08-09] MEDS: Sodium Chloride 0.9% 1,000 ML IV SCH ×2 (17:12→23:59)
[2020-08-09] MEDS: Gemfibrozil 600 MG TAB PO SCH (17:15)
--- NOTE | 2020-08-09 17:36 | CON ---
DATE OF CONSULTATION: REASON FOR CONSULTATION: Elevated creatinine. HISTORY OF PRESENT ILLNESS: This is a very pleasant 74-year-old gentleman, who for peptic ulcer and took Bactrim and his creatinine was elevated. He was on hydrochlorothiazide. The patient has had poor p.o. intake. The patient denies any nausea, vomiting, or chest pain. PAST MEDICAL HISTORY: Significant for hypertension, hyperlipidemia, GERD, history of pacemaker, right foot surgery, polyp removal, vasectomy, history of bleeding ulcer. FAMILY HISTORY: Negative for ESRD. ALLERGIES: REVIEWED. MEDICATIONS: Home medications, list reviewed. Hospital medications, list reviewed. REVIEW OF SYSTEMS: 15-point review of system was performed negative except for positives noted above. HEENT: Eyes intact, no diplopia. Ears: No hearing loss or earache. Nose: No discharge or bleeding. Chest: No cough or phlegm. Abdomen: No nausea or vomiting. Genitourinary: No hematuria. No Cochran catheter. Musculoskeletal: No low back pain. No joint swelling or pain. Neurological: No syncope. No seizures. Skin: No complaints of rash or itching. Psychiatric: No depression. Constitutional: No weight loss or loss of appetite. PHYSICAL EXAMINATION: General: The patient is awake and alert. Vital Signs: Afebrile, pulse 75, breathing at 16, blood pressure 95/80. HEENT: Head normocephalic and atraumatic. Eyes intact, no ulcers. Nose intact, no ulcers. Ears intact, no ulcers. Neck: Supple. No JVD. Chest: Symmetrical and clear. Cardiovascular: Shows S1 and S2, no rub, no murmur. Gastrointestinal: Abdomen is soft, bowel sounds positive. Extremities: Show no edema or ulcers. Skin: Shows no rash or petechiae. Musculoskeletal: Shows no joint swelling or stiffness. Genitourinary: Shows no Cochran or CVA tenderness. Neurologic: Motor intact. Cranial nerves intact. LABORATORY DATA: Reviewed. IMPRESSION AND PLAN: Acute kidney injury with chronic kidney disease stage 3. We will hold off on Bactrim and continue hydration and hold hydrochlorothiazide. Anemia, stable. Medication based on GFR appropriate. We will follow renal function closely. No indication for dialysis. Job ID: [id number]
--- NOTE | 2020-08-09 19:11 | ULT ---
Exam: Bilateral renal ultrasound HISTORY: Acute kidney insufficiency COMPARISON: None FINDINGS: Right kidney: Normal cortical echotexture. No hydronephrosis. Anechoic focus emanating from the upper pole measuring 2.9 x 2.7 x 3.5 cm compatible with a cyst Right kidney measurements: 12.7 x 5.8 x 5.0 cm. Left kidney: Normal cortical echotexture. No hydronephrosis Left kidney measurements 12.5 x 6.3 x 5.7 cm. Urinary bladder: Normal mucosa. 60 mL prevoid volume. IMPRESSION: 1. No hydronephrosis 2. Right renal cortical cyst.
[2020-08-09] MEDS: Heparin 5,000 UNITS/ML VIAL SC SCH (20:49)
[2020-08-09] MEDS: Bicitra 30 ML UDCUP PO SCH (20:50)
[2020-08-10 05:16] LABS: #Lymphocytes 1.3 thou/uL (1.20-3.40); #Monocytes 0.5 thou/uL (0.11-0.59); #Neutrophils 4.9 thou/uL (1.40-6.50); %Basophils 0.6 % (0.0-1.0); %Eosinophils 0.5 % (0.0-10.0); %Lymphocytes 18.6 % (21.0-51.0); %Monocytes 7.3 % (0.0-10.0); %Neutrophils 72.9 % (42.0-75.0); Mean Corpuscular HGB CONC 34.1 g/dL (32.0-36.0); Mean Corpuscular Hemoglobin 30.4 pg (27.0-31.0); Mean Corpuscular Volume 89.3 fL (78.0-98.0); Mean Platelet Volume 7.8 fL (7.4-10.4); Platelet Count 402 thou/uL (130-400); RBC Distribution Width 13.5 % (11.5-14.5); Red Blood Cell (RBC) Count 4.28 mill/uL (4.70-6.10); White Blood Cell (WBC) Count 6.7 thou/uL (4.8-10.8)
[2020-08-10 05:26] LABS: Anion Gap 12 mmol/L (10-20); BUN (Urea Nitrogen) 37 mg/dL (8.4-25.7); Calc. Creatinine Clearance 28 mL/min (70-130); Calcium 9.1 mg/dL (7.8-10.44); Carbon Dioxide 25 mmol/L (23-31); Chloride 104 mmol/L (98-107); Estimated GFR-MDRD 25; Glucose 84 mg/dL (83-110); Magnesium 2.2 mg/dL (1.6-2.6); Potassium 4.7 mmol/L (3.5-5.1); Sodium 136 mmol/L (136-145)
[2020-08-10] MEDS: Sodium Chloride 0.9% 1,000 ML IV SCH ×4 (06:26→19:27)
[2020-08-10] MEDS: Gemfibrozil 600 MG TAB PO SCH ×2 (08:15→16:37)
[2020-08-10] MEDS: Aspirin 81 mg Enteric Coated Tablet PO SCH (08:15)
[2020-08-10] MEDS: Heparin 5,000 UNITS/ML VIAL SC SCH ×2 (08:15→19:26)
[2020-08-10] MEDS: Bicitra 30 ML UDCUP PO SCH ×3 (08:34→19:27)
--- NOTE | 2020-08-10 11:15 | PRG ---
DATE OF SERVICE: 08/10/2020 SUBJECTIVE: This is a very pleasant 74-year-old gentleman, being seen for acute kidney injury. The patient denies any nausea, vomiting, or chest pain. PHYSICAL EXAMINATION: GENERAL: The patient is awake and alert. VITAL SIGNS: Afebrile, pulse 95, breathing 16, blood pressure 108/56. HEENT: Head normocephalic and atraumatic. Eyes intact, no ulcers. Nose intact, no ulcers. Ears intact, no ulcers. Neck: Supple. No JVD. Chest: Symmetrical and clear. Cardiovascular: Shows S1 and S2, no rub, no murmur. Gastrointestinal: Abdomen is soft, bowel sounds positive. Extremities: Show no edema or ulcers. Skin: Shows no rash or petechiae. Musculoskeletal: Shows no joint swelling or stiffness. Genitourinary: Shows no Cochran or CVA tenderness. Neurologic: Motor intact. Cranial nerves intact. LABORATORY DATA: Labs reviewed. ASSESSMENT AND PLAN: 1. Acute kidney injury improved. 2. Hypertension, stable. 3. Anemia stable. 4. Metabolic acidosis, improved. 5. I would recommend starting low-dose beta drew as he was taking before. Job ID: [id number]
[2020-08-10] MEDS ORDERED: Bisoprolol Fumarate 5 MG TAB PO SCH ×2 (11:45→13:15)
[2020-08-10 12:31] LABS: SARS-CoV-2 MS2 Positive; SARS-CoV-2 N Gene Negative; SARS-CoV-2 S Gene Negative; SARS-CoV-2 by NAA Not Detected (NotDetected); SARS-CoV-2 orf1ab Negative
--- NOTE | 2020-08-10 19:31 | PDOC.HOSPP ---
- Subjective Encounter Date: 08/10/20 Encounter Time: 15:00 Subjective: Patient was seen for follow-up regarding acute kidney injury. He denies any chest pain or shortness of breath. He denies any fevers or chills. - Objective Vital Signs & Weight: Vital Signs (12 hours) Temp Pulse Resp BP BP Pulse Ox 08/10/20 16:00 84 16 132/74 08/10/20 12:00 98.4 F 79 16 107/59 L 97 08/10/20 08:00 98.0 F 79 16 108/56 L 97 Weight Admit Weight 173 lb 6.4 oz Weight 173 lb 6.4 oz I&O: 08/09/20 08/10/20 08/11/20 06:59 06:59 06:59 Intake Total 3010 1070 Output Total 1400 425 Balance 1610 645 Result Diagrams: 08/10/20 04:40 08/10/20 04:40 Additional Labs: I reviewed patient's labs and MAR Hospitalist ROS - Review of Systems Cardiovascular: denies: chest pain, palpitations, orthopnea, paroxysmal noc. dyspnea, edema, light headedness Gastrointestinal: denies: nausea, vomiting, abdominal pain, diarrhea, constipation, melena, hematochezia - Medication Medications: Active Medications Generic Name Dose Route Start Last Admin Trade Name Ernesto PRN Reason Stop Dose Admin Aspirin 81 mg 08/10/20 09:00 08/10/20 08:15 Aspirin 81 Mg Enteric Coated Tablet PO 81 mg DAILY DUONG Administration Citric Acid/Sodium Citrate 30 ml 08/09/20 21:00 08/10/20 15:11 Bicitra 30 Ml Udcup PO 30 ml TID DUONG Administration Gemfibrozil 600 mg 08/09/20 16:30 08/10/20 16:37 Gemfibrozil 600 Mg Tab PO 600 mg BID-AC DUONG Administration Heparin Sodium (Porcine) 5,000 units 08/09/20 21:00 08/10/20 08:15 Heparin 5,000 Units/Ml Vial SC 5,000 units BID DUONG Administration Sodium Chloride 1,000 mls @ 150 mls/hr 08/09/20 15:00 08/10/20 16:37 Normal Saline 0.9% IV Not Given .[id number] [facility] Pantoprazole Sodium 40 mg 08/10/20 09:00 08/10/20 08:15 Pantoprazole 40 Mg Tab PO 40 mg DAILY DUONG Administration - Exam General Appearance: awake alert Eye: anicteric sclera ENT: moist mucosa Neck: supple Heart: RRR Respiratory: CTAB Gastrointestinal: soft, non-tender Extremities: no cyanosis Musculoskeletal: no muscle wasting Psychiatric: normal affect, normal behavior Hosp A/P - Plan -Assessment (1) BLOSSOM (acute kidney injury) Code(s): N17.9 - ACUTE KIDNEY FAILURE, UNSPECIFIED Status: Acute (2) Dehydration Code(s): E86.0 - DEHYDRATION Status: Acute (3) Hypertension Code(s): I10 - ESSENTIAL (PRIMARY) HYPERTENSION Status: Chronic (4) Hyperlipidemia Code(s): E78.5 - HYPERLIPIDEMIA, UNSPECIFIED Status: Chronic (5) GERD (gastroesophageal reflux disease) Code(s): K21.9 - GASTRO-ESOPHAGEAL REFLUX DISEASE WITHOUT ESOPHAGITIS Status: Chronic (6) Hyponatremia Code(s): E87.1 - HYPO-OSMOLALITY AND HYPONATREMIA Status: Resolved - Plan Plan: Hyponatremia has resolved. Creatinine has improved to 2.55. COVID-19 test is negative. Hold hydrochlorothiazide, give bisoprolol 5 mg today and 10 mg daily starting tomorrow. Patient has a history of tachyarrhythmias when off of bisoprolol. updated by bedside. Bactrim has been discontinued.
[2020-08-11 04:17] LABS: Anion Gap 15 mmol/L (10-20); BUN (Urea Nitrogen) 21 mg/dL (8.4-25.7); Calc. Creatinine Clearance 53 mL/min (70-130); Calcium 8.3 mg/dL (7.8-10.44); Carbon Dioxide 17 mmol/L (23-31); Chloride 109 mmol/L (98-107); Estimated GFR-MDRD 52; Glucose 82 mg/dL (83-110); Sodium 137 mmol/L (136-145)
[2020-08-11 04:31] LABS: #Eosinphils 0.1 thou/uL (0.0-0.7); #Lymphocytes 0.8 thou/uL (1.20-3.40); #Monocytes 0.4 thou/uL (0.11-0.59); %Basophils 0.9 % (0.0-1.0); %Eosinophils 3.3 % (0.0-10.0); %Lymphocytes 18.1 % (21.0-51.0); %Monocytes 9.1 % (0.0-10.0); %Neutrophils 68.6 % (42.0-75.0); Hemoglobin 13.2 g/dL (14.0-18.0); Mean Corpuscular HGB CONC 32.7 g/dL (32.0-36.0); Mean Corpuscular Hemoglobin 30.6 pg (27.0-31.0); Mean Corpuscular Volume 93.7 fL (78.0-98.0); Mean Platelet Volume 8.7 fL (7.4-10.4); Platelet Count 243 thou/uL (130-400); RBC Distribution Width 14.1 % (11.5-14.5); Red Blood Cell (RBC) Count 4.31 mill/uL (4.70-6.10); White Blood Cell (WBC) Count 4.3 thou/uL (4.8-10.8)
[2020-08-11] MEDS ORDERED: Sodium Chloride 0.45% 1,000 ML IV SCH (07:45)
[2020-08-11 08:06] VITALS: BP 147/69; TEMP 98.2
[2020-08-11] MEDS: Bicitra 30 ML UDCUP PO SCH (08:06)
[2020-08-11] MEDS: Aspirin 81 mg Enteric Coated Tablet PO SCH (08:09)
[2020-08-11] MEDS: Heparin 5,000 UNITS/ML VIAL SC SCH (08:09)
[2020-08-11] MEDS: Gemfibrozil 600 MG TAB PO SCH (08:09)
[2020-08-11] MEDS: Sodium Chloride 0.9% 1,000 ML IV SCH (08:22)
[2020-08-11] MEDS ORDERED: Bisoprolol Fumarate 5 MG TAB PO SCH (09:00)
--- NOTE | 2020-08-11 10:40 | PRG ---
DATE OF SERVICE: 08/11/2020 SUBJECTIVE: This 74-year-old male being seen for acute kidney injury. The patient denies any nausea, vomiting, or chest pain. PHYSICAL EXAMINATION: GENERAL: The patient is awake and alert. VITAL SIGNS: Afebrile, pulse 81, breathing at 16, and blood pressure 115/63. HEENT: Head normocephalic and atraumatic. Eyes intact, no ulcers. Nose intact, no ulcers. Ears intact, no ulcers. NECK: Supple. No JVD. CHEST: Symmetrical and clear. CARDIOVASCULAR: Shows S1 and S2, no rub, no murmur. GASTROINTESTINAL: Abdomen is soft, bowel sounds positive. EXTREMITIES: Show no edema or ulcers. SKIN: Shows no rash or petechiae. MUSCULOSKELETAL: Shows no joint swelling or stiffness. GENITOURINARY: Shows no Cochran or CVA tenderness. NEUROLOGIC: Motor intact. Cranial nerves intact. LABORATORY DATA: Labs reviewed. ASSESSMENT AND PLAN: 1. Chronic kidney disease, stage 3, stable. 2. Acute kidney injury, stable. 3. Hypertension, stable. 4. Anemia, stable. 5. Medication based on GFR appropriate. I will sign off on this patient. The patient will follow up to see me in 1 week. Job ID: [id number]
--- NOTE | 2020-08-11 14:26 | DIS ---
DATE OF ADMISSION: 08/09/2020 DATE OF DISCHARGE: 08/11/2020 DISCHARGE DISPOSITION: Home. FOLLOWUP: 1. Follow up with primary care physician, Dr. Braeden Villalobos, in 1 week. 2. Follow up with Nephrology Dr. Donaldo Mann, as scheduled. ALLERGIES: THE PATIENT IS ALLERGIC TO HYDROCODONE. DISCHARGE MEDICATIONS: 1. Bisoprolol 10 mg daily. 2. Omeprazole 40 mg daily. 3. Gemfibrozil 600 mg b.i.d. 4. Aspirin 81 mg daily. Please note that hydrochlorothiazide will be held at discharge for now. The patient was evaluated on the day of discharge. Denies any new complaints. No shortness of breath, fever, chills, or urinary symptoms reported. SIGNIFICANT LABORATORY DATA: Maximum creatinine 4.32, at discharge 1.35. Sodium 128. Renal ultrasound was negative for obstructive uropathy. It showed right renal cortical cyst. BRIEF HOSPITAL COURSE: The patient is a 74-year-old male with recent acute diverticulitis requiring oral Bactrim, presented to the emergency room with generalized weakness and abnormal labs. His workup was consistent with acute kidney injury with creatinine of 4.0. Hydrochlorothiazide as well as other nephrotoxic agents were held. His renal function gradually improved with IV hydration. He was also evaluated by Nephrology during this hospital stay. His creatinine has improved to 1.35 at discharge. He also had hyponatremia with sodium of 128 that has improved with IV hydration to 137. Symptomatically, he feels much better and appears stable for discharge. Nephrology signed off this morning. FINAL DIAGNOSES: 1. Acute kidney injury on chronic kidney disease, stage 2. 2. Hyponatremia. 3. Dehydration. 4. Hypertension. 5. Gastroesophageal reflux disease. 6. Hyperlipidemia. 7. History of tachyarrhythmia. 8. Recent diverticulitis, completed antibiotics. 9. Mild chronic anemia suspected due to nutritional deficiency. The patient understands the above plan of care. Job ID: [id number]
== END 2020-08-11 13:30 | disposition home or self-care (01) | DRG 683 ==
LOC: ERS 10:35 → ONC 16:55
PROVIDERS: ADMIT Internal Medicine; ATTEND Internal Medicine
DX: N17.9 Acute kidney failure, unspecified (principal); E87.1 Hypo-osmolality and hyponatremia; E87.2 Acidosis; E86.0 Dehydration; I12.9 Hypertensive chronic kidney disease with stage 1 through stage 4 chronic kidney disease, or unspecified chronic kidney disease; K21.9 Gastro-esophageal reflux disease without esophagitis; I49.9 Cardiac arrhythmia, unspecified; E78.5 Hyperlipidemia, unspecified; D53.9 Nutritional anemia, unspecified; E78.00 Pure hypercholesterolemia, unspecified; N18.30 Chronic kidney disease, stage 3 unspecified; I95.9 Hypotension, unspecified; I44.0 Atrioventricular block, first degree; Z20.828 Contact with and (suspected) exposure to other viral communicable diseases; Z88.5 Allergy status to narcotic agent; Z79.899 Other long term (current) drug therapy; Z79.82 Long term (current) use of aspirin; Z95.0 Presence of cardiac pacemaker
CPT/HCPCS: 36415; 76770; 80048; 80053; 81003; 83735; 83930; 83935; 84300; 85025; 87635; 93005; J1644; U0003

== ENCOUNTER 2020-08-31 10:24 | Outpatient (CLI) | payer MEDICARE, OTHER ==
[2020-08-31 17:50] LABS: SARS-CoV-2 MS2 Positive; SARS-CoV-2 N Gene Negative; SARS-CoV-2 S Gene Negative; SARS-CoV-2 by NAA Not Detected (NotDetected); SARS-CoV-2 orf1ab Negative
== END 2020-08-31 10:25 | disposition home or self-care (01) ==
LOC: LABBT 10:24
PROVIDERS: ATTEND Specialist
DX: Z20.828 Contact with and (suspected) exposure to other viral communicable diseases (principal)
CPT/HCPCS: 87635; U0003

== ENCOUNTER 2020-09-05 09:25 | Outpatient (CLI) | payer MEDICARE ==
--- NOTE | 2020-09-05 10:48 | RAD ---
Single contrast upper GI INDICATION: History of duodenal perforation COMPARISON: Prior CT the abdomen and pelvis dated July 27, 2020, July 25, 2020 and May 28, 2019 TECHNIQUE: A single contrast upper GI was performed first utilizing Gastrografin contrast. Following confirmation of no obvious enteric leak, thin barium contrast was administered. Fluoroscopy time: 3.2 minutes. 74.017 mgy /sq cm. FINDINGS: Environmental Technology Professor images demonstrate no evidence of a pneumoperitoneum. There is a surgical anastomotic suture li ne seen within the left upper quadrant of the abdomen. The bowel gas pattern is unobstructed. With antegrade administration Gastrografin contrast there was filling of the stomach and duodenum wit hout evidence of extraluminal leak. Multiple small diverticula were seen involving the duodenum and jejunum with a more prominent diverticulum seen along the superior margin of the third stage of the d uodenum. Following this, thin barium contrast was administered and the contrast was seen to flow across the duodenal sweep without evidence of leak or obstruction. There was a small hiatal hernia de monstrated. Visualized aspects of the esophagus on the single contrast examination. Within normal limits. No definite intraluminal mass is evident within the stomach. An additional upright delayed KUB was performed demonstrating no evidence of leak. IMPRESSION: 1. No evidence of extraluminal leakage of contrast in the region of the duodenal sweep. 2. Multiple duodenal and jejunal diverticula. Prior perforation was likely related to a retroperitone al perforation of a duodenal diverticulum. 3. No overt evidence to suggest presence of duodenitis. 4. Small hiatal hernia.
== END 2020-09-05 09:26 | disposition home or self-care (01) ==
LOC: RAD 09:25
PROVIDERS: ATTEND Specialist
DX: K63.1 Perforation of intestine (nontraumatic) (principal); K44.9 Diaphragmatic hernia without obstruction or gangrene; K57.10 Diverticulosis of small intestine without perforation or abscess without bleeding
CPT/HCPCS: 74240

== ENCOUNTER 2023-06-12 12:11 | Emergency (ER) | payer MEDICARE ==
[2023-06-12 13:00] LABS: Bacteria/HPF None Seen HPF (None Seen); Bilirubin Negative (Negative); Blood, Urine Negative (Negative); CAUTI Indications for Culture Pelvic or flank pain; Clarity Clear (Clear); Glucose, Urine (Dipstick) Normal (Negative); Ketone, Urine Negative (Negative); Leukocyte Negative Leu/uL (Negative); Nitrite Negative (Negative); Protein, Urine (Dipstick) Negative (Neg-Trace); RBC/HPF 0-3 HPF (0-3); Specific Gravity, Urine 1.016 (1.002-1.036); Squamous Epithelial None Seen HPF (0-3); Urobilinogen Normal mg/dL (Less than 2); WBC/HPF 0-3 HPF (0-3)
[2023-06-12 13:02] LABS: Urine Culture Reflex No No
[2023-06-12 13:02] LABS: #Basophils 0.1 thou/uL (0.0-0.2); #Eosinphils 0.3 thou/uL (0.0-0.7); #Monocytes 0.3 thou/uL (0.11-0.59); #Neutrophils 2.4 thou/uL (1.40-6.50); %Basophils 1.1 % (0.0-1.0); %Eosinophils 6.8 % (0.0-10.0); %Lymphocytes 32.2 % (21.0-51.0); %Monocytes 6.5 % (0.0-10.0); %Neutrophils 52.9 % (42.0-75.0); Hematocrit 43.1 % (42.0-52.0); Hemoglobin 14.6 g/dL (14.0-18.0); Mean Corpuscular HGB CONC 33.9 g/dL (32.0-36.0); Mean Corpuscular Hemoglobin 30.3 pg (27.0-31.0); Mean Corpuscular Volume 89.4 fl (78.0-98.0); Mean Platelet Volume 10.5 fL (7.4-10.4); RBC Distribution Width 14.3 % (11.5-14.5); Red Blood Cell (RBC) Count 4.82 mill/uL (4.70-6.10); White Blood Cell (WBC) Count 4.4 10x3/uL (4.8-10.8)
[2023-06-12] MEDS ORDERED: Ondansetron PF 4 MG/2 ML Vial ONE (13:04)
[2023-06-12 13:05] LABS: Platelet Count 255 10x3/uL (130-400)
[2023-06-12] MEDS ORDERED: Morphine 2 MG/ML VIAL ONE (13:06)
[2023-06-12 14:12] LABS: Albumin 4.3 g/dL (3.4-4.8)
[2023-06-12 14:13] LABS: Calcium 9.2 mg/dL (7.8-10.44); Chloride 107 mmol/L (98-107); Potassium 4.4 mmol/L (3.5-5.1); Sodium 140 mmol/L (136-145)
[2023-06-12 14:14] LABS: Globulin 2.7 g/dL (2.4-3.5); Glucose 108 mg/dL (83-110)
[2023-06-12] MEDS ORDERED: Iopamidol-370 76% 500 ML MDV (1 ML CHARGE) ONE (14:14)
[2023-06-12 14:16] LABS: Anion Gap 13 mmol/L (10-20); Bilirubin, Total 0.5 mg/dL (0.2-1.2); Carbon Dioxide 24 mmol/L (23-31)
[2023-06-12 14:17] LABS: Alkaline Phosphatase 65 U/L (40-110); Calc. Creatinine Clearance 0 mL/min (70-130); Estimated GFR 66
[2023-06-12 14:18] LABS: BUN (Urea Nitrogen) 16 mg/dL (8.4-25.7)
[2023-06-12 14:19] LABS: AST (SGOT) 20 U/L (5-34)
[2023-06-12 14:20] LABS: ALT (SGPT) 21 U/L (8-55); Lipase 18 U/L (8-78)
== END 2023-06-12 15:23 | disposition home or self-care (01) ==
LOC: ERS 12:11
DX: R10.31 Right lower quadrant pain (principal); I10 Essential (primary) hypertension; Z79.82 Long term (current) use of aspirin; Z79.899 Other long term (current) drug therapy
CPT/HCPCS: 36415; 74177; 80053; 81001; 83690; 85025; 96374; 96375; J2272; J2405; Q9967

== ENCOUNTER 2024-03-08 11:09 | Outpatient (CLI) | payer MEDICARE ==
[~2024-03-08 11:09] MED LIST changes: -Dexamethasone 20 MG/5 ML VIAL ONE; -Glycopyrrolate 0.2 MG/ML 5 ML SYRINGE ONE; -ISOVUE-370 76%-LOCM 1 ML ONE; +Iopamidol 370 76% 100 ML VIAL ONE; -Lidocaine 1% PF 5 ML VIAL ONE; -Ondansetron PF 4 MG/2 ML Vial ONE; -PHENYLEPHRINE-NS 100 MCG/ML 10 ML SYRINGE ONE; -PROPOFOL 200 MG/20 ML VIAL ONE; -Rocuronium Bromide 10 MG/ML (10ML VIAL) ONE; -Succinylcholine Chloride 20 MG/ML 10 ml SYRINGE FS ONE; -ePHEDrine 50 MG/ML VIAL ONE
== END 2024-03-08 11:10 | disposition home or self-care (01) ==
LOC: BICCT 11:09
PROVIDERS: ATTEND Psychiatry & Neurology Neurology
DX: G20.C Parkinsonism, unspecified (principal); M21.371 Foot drop, right foot; R25.1 Tremor, unspecified; J32.0 Chronic maxillary sinusitis
CPT/HCPCS: 70470; Q9967

== ENCOUNTER 2024-06-22 08:26 | Outpatient (CLI) | payer MEDICARE | END 2024-06-22 08:27 | disposition home or self-care (01) | LOC: NM 08:26 | PROVIDERS: ATTEND Psychiatry & Neurology Neurology | DX: R25.1 Tremor, unspecified (principal) | CPT/HCPCS: 78803; A9584 ×2 ==